=== PATIENT | female | born 1935 | race Caucasian/White ===

== ENCOUNTER 2019-08-04 21:34 | Observation (INO) ==
[2019-08-05] MEDS ORDERED: Dextrose Gel 15 GM/37.5 ML TUBE PO PRN ×2 (03:57)
[2019-08-05] MEDS ORDERED: Naloxone 0.4 MG/ML INJ IVP PRN (03:57)
[2019-08-05] MEDS ORDERED: *HR* Dextrose 50 % in Water (Syg) 50 ML SYRINGE IVP PRN (03:57)
[2019-08-05] MEDS ORDERED: D5% in Water 1,000 ML IVC PRN (03:57)
[2019-08-05] MEDS ORDERED: Aspirin Enteric Coated 81 MG Tablet PO ONE (04:03)
[2019-08-05 04:33] LABS: Basophils % 0.4 %; Eosinophils # 0.2 K/mcL (0.0-0.6); Eosinophils % 4.1 %; Hematocrit 38.5 % (35.3-44.9); Hemoglobin 11.7 g/dL (11.5-15.4); INR 1.2; Immature Granulocytes % 0.4 % (0-4); Lymphocytes # 1.5 K/mcL (0.6-4.6); Lymphocytes % 28.3 %; Mean Corpuscular HGB Conc 30.4 g/dL (31.6-35.5); Mean Corpuscular Hemoglobin 31.9 pg (28.0-33.3); Mean Corpuscular Volume 104.9 fL (83.0-100.0); Mean Platelet Volume 10.6 fL (9.4-12.4); Monocytes # 0.3 K/mcL (0.0-1.3); Monocytes % 6.3 %; Neutrophils # 3.3 K/mcL (1.6-8.9); Platelet Count 124 K/mcL (140-400); Red Blood Count 3.67 M/mcL (3.82-4.97); Red Cell Distribution Width 15.9 % (11.5-14.5); Segmented Neutrophils % 60.5 %; White Blood Count 5.4 K/mcL (4.3-11.1)
[2019-08-05 04:51] LABS: Albumin 3.6 g/dL (3.5-5.7); Albumin/Globulin Ratio 1.6 (1.1-2.2); Bilirubin,Total 0.6 mg/dL (0.3-1.0); Calcium 9.6 mg/dL (8.6-10.3); Chol/HDL Ratio 4.3 (0-4.9); Globulin 2.3 g/dL (2.4-3.5); Phosphorous 3.4 mg/dL (2.7-4.5); Total Protein 5.9 g/dL (6.4-8.9)
[2019-08-05] MEDS: Apixaban 5 MG TABLET PO SCH ×2 (08:12→21:05)
[2019-08-05] MEDS: Insulin LISPRO 300 UNITS/3 ML VIAL SQ SCH ×3 (08:12→17:30)
[2019-08-05 08:22] LABS: Estimated Average Glucose 226 mg/dl
[2019-08-05] MEDS ORDERED: Diltiazem CD (24hr) 240 MG CAPSULE PO SCH (11:00)
[2019-08-05] MEDS ORDERED: Perflutren Lipid Microsphere 1.3 ML in 0.9 % Sodium Chloride 8.7 ML IVP ONE (11:58)
[2019-08-05] MEDS: cefTRIAXone 1,000 MG in Water for inj. (sterile) 10 ML IVP SCH (12:36)
[2019-08-05] MEDS ORDERED: 0.9 % Sodium Chloride 1,000 ML IVC SCH (13:00)
[2019-08-06 06:08] LABS: Folate 7.6 ng/mL (3.0-16.0)
[2019-08-06 07:49] LABS: Basophils % 0.3 %; Eosinophils # 0.3 K/mcL (0.0-0.6); Eosinophils % 4.6 %; Hemoglobin 12.3 g/dL (11.5-15.4); Immature Granulocytes % 0.3 % (0-4); Lymphocytes # 0.9 K/mcL (0.6-4.6); Lymphocytes % 15.5 %; Mean Corpuscular HGB Conc 29.3 g/dL (31.6-35.5); Mean Corpuscular Hemoglobin 31.6 pg (28.0-33.3); Mean Platelet Volume 10.5 fL (9.4-12.4); Monocytes # 0.4 K/mcL (0.0-1.3); Monocytes % 7.1 %; Neutrophils # 4.2 K/mcL (1.6-8.9); Platelet Count 127 K/mcL (140-400); Red Blood Count 3.89 M/mcL (3.82-4.97); Red Cell Distribution Width 15.9 % (11.5-14.5); Segmented Neutrophils % 72.2 %; White Blood Count 5.8 K/mcL (4.3-11.1)
[2019-08-06 08:04] LABS: Calcium 9.5 mg/dL (8.6-10.3); Potassium 4.5 mEq/L (3.5-5.1)
[2019-08-06] MEDS: Insulin LISPRO 300 UNITS/3 ML VIAL SQ SCH ×2 (08:23→11:52)
[2019-08-06] MEDS: Apixaban 5 MG TABLET PO SCH (08:24)
[2019-08-06] MEDS ORDERED: amLODIPine 5 MG TABLET PO SCH (09:00)
[2019-08-06] MEDS ORDERED: Diltiazem CD (24hr) 180 MG CAPSULE PO SCH (09:00)
[2019-08-06 11:16] VITALS: BP 111/72
[2019-08-06] MEDS: cefTRIAXone 1,000 MG in Water for inj. (sterile) 10 ML IVP SCH (11:52)
== END 2019-08-06 13:35 | disposition left against medical advice (07) ==
LOC: 2ANU → SUATTDRO 08-05 00:38
PROVIDERS: ADMIT Family Medicine; ATTEND Internal Medicine

== ENCOUNTER 2019-08-09 10:44 | Inpatient (IN) ==
[2019-08-09] MEDS ORDERED: Furosemide 40 MG/4 ML VIAL IVP ONE (11:01)
[2019-08-09 11:20] LABS: Basophils % 0.2 %; Hematocrit 41.4 % (35.3-44.9); Hemoglobin 12.5 g/dL (11.5-15.4); Immature Granulocytes % 0.2 % (0-4); Lymphocytes # 0.3 K/mcL (0.6-4.6); Lymphocytes % 4.4 %; Mean Corpuscular HGB Conc 30.2 g/dL (31.6-35.5); Mean Corpuscular Volume 105.9 fL (83.0-100.0); Mean Platelet Volume 10.6 fL (9.4-12.4); Monocytes # 0.6 K/mcL (0.0-1.3); Monocytes % 8.9 %; Neutrophils # 5.7 K/mcL (1.6-8.9); Platelet Count 150 K/mcL (140-400); Red Blood Count 3.91 M/mcL (3.82-4.97); Red Cell Distribution Width 15.9 % (11.5-14.5); Segmented Neutrophils % 86.3 %; White Blood Count 6.5 K/mcL (4.3-11.1)
[2019-08-09 11:33] LABS: Bilirubin,Urine Small (Negative); Blood,Urine Large (Negative); Clarity,Urine Turbid (Clear); Color,Urine Dark Yellow (Yellow); Glucose,Urine (UA) >=1000 mg/dL (Normal); Ketones,Urine Negative (Negative); Leukocyte Esterase,Urine Negative (Negative); Nitrite,Urine Negative (Negative); PH,Urine 5.5 pH Units (5.0-8.0); Protein,Urine 100 mg/dL (Neg-Trace); Specific Gravity,Urine 1.023 (1.010-1.025); Urobilinogen,Urine Normal (Normal)
[2019-08-09] MEDS ORDERED: Piperacillin/Tazobactam 3.375 GM in 0.9 % Sodium Chloride Mini Bag 100 ML IVPB ONE (11:33)
[2019-08-09] MEDS ORDERED: levoFLOXacin 750 MG/150 ML 750 MG/150 ML BAG IVPB ONE (11:33)
[2019-08-09 11:35] LABS: RBC,Urine TNTC per hpf (0-3); Squamous Epithelial Cell,Urine Many per lpf (None-Few)
[2019-08-09 11:42] LABS: Potassium 4.5 mEq/L (3.5-5.1)
[2019-08-09 11:44] LABS: Troponin I 0.03 ng/mL (< 0.04)
[2019-08-09 11:53] LABS: Renal Epithelial Cells,Urine Few per hpf (None-Few)
[2019-08-09 11:55] LABS: Bacteria,Urine Few per hpf (None-Few)
[2019-08-09 11:59] LABS: Amorphous Sediment,Urine Few per hpf (Few); Uric Acid Crystals,Urine Present
[2019-08-09] MEDS ORDERED: Insulin Human Regular 10 UNIT in 0.9 % Sodium Chloride 10 ML IV ONE (13:09)
[2019-08-09] MEDS ORDERED: Ipratropium/Albuterol Neb 3 ML ONE (14:06)
[2019-08-09] MEDS: Ipratropium/Albuterol Neb 3 ML IH PRN ×3 (14:07→22:27)
[2019-08-09] MEDS ORDERED: *HR* Heparin 5,000 UNIT/ML VIAL IVP ONE (14:10)
[2019-08-09] MEDS ORDERED: *HR* Heparin 5,000 UNIT/ML VIAL IVP PRN (14:10)
[2019-08-09] MEDS ORDERED: *HR* Dextrose 50 % in Water (Syg) 50 ML SYRINGE IVP PRN (14:26)
[2019-08-09] MEDS ORDERED: D5% in Water 1,000 ML IVC PRN (14:26)
[2019-08-09] MEDS ORDERED: Dextrose Gel 15 GM/37.5 ML TUBE PO PRN ×2 (14:26)
[2019-08-09 14:28] LABS: ABG Base Excess -3 mEq/L (-2 to 3); ABG HCO3 20 mEq/L (21-27); ABG Oxygen Saturation 98 % (95-98); ABG PCO2 29 mmHg (35-45); ABG PH 7.45 pH Units (7.32-7.45); ABG PO2 96 mmHg (85-104); ABG TCO2 21 mEq/L (20-26)
[2019-08-09] MEDS ORDERED: Vancomycin (wt based) 1,000 MG VIAL IVPB SCH (15:00)
[2019-08-09] MEDS: Heparin 25,000 UNIT/250 ML D5W 25,000 UNIT/250 ML IV.SOLN IVC SCH (15:54)
[2019-08-09 16:03] LABS: Heparin anti-factor XA UFH 0.21 IU/mL (0.30-0.70); INR 1.2; Prothrombin Time 13.8 Seconds (9.4-12.1)
[2019-08-09] MEDS: Insulin LISPRO 300 UNITS/3 ML VIAL SQ SCH ×2 (20:30→23:00)
[2019-08-09] MEDS: Piperacillin/Tazobactam 3.375 GM in 0.9 % Sodium Chloride Mini Bag 100 ML IVPB SCH (22:59)
[2019-08-09 23:37] LABS: ABG Base Excess -3 mEq/L (-2 to 3); ABG HCO3 22 mEq/L (21-27); ABG Oxygen Saturation 94 % (95-98); ABG PCO2 36 mmHg (35-45); ABG PH 7.39 pH Units (7.32-7.45); ABG PO2 69 mmHg (85-104); ABG TCO2 23 mEq/L (20-26)
[2019-08-10] MEDS: Levalbuterol Neb 1.25 MG/3 ML IH SCH ×6 (03:47→23:40)
[2019-08-10 04:47] LABS: Hematocrit 37.6 % (35.3-44.9); Hemoglobin 11.5 g/dL (11.5-15.4); Mean Corpuscular HGB Conc 30.6 g/dL (31.6-35.5); Mean Corpuscular Hemoglobin 31.9 pg (28.0-33.3); Mean Corpuscular Volume 104.4 fL (83.0-100.0); Mean Platelet Volume 11.1 fL (9.4-12.4); Platelet Count 138 K/mcL (140-400); White Blood Count 5.9 K/mcL (4.3-11.1)
[2019-08-10] MEDS: Piperacillin/Tazobactam 3.375 GM in 0.9 % Sodium Chloride Mini Bag 100 ML IVPB SCH ×2 (04:57→13:02)
[2019-08-10 05:00] LABS: Calcium 9.5 mg/dL (8.6-10.3); Potassium 4.1 mEq/L (3.5-5.1)
[2019-08-10] MEDS ORDERED: Aminoglycoside Consult 1 EACH MC ONE (08:26)
[2019-08-10] MEDS: Insulin LISPRO 300 UNITS/3 ML VIAL SQ SCH ×4 (08:58→21:00)
[2019-08-10] MEDS: Acetaminophen 325 MG TABLET PO PRN ×2 (08:59→23:03)
[2019-08-10] MEDS ORDERED: amLODIPine 5 MG TABLET PO SCH (09:00)
[2019-08-10] MEDS ORDERED: Diltiazem CD (24hr) 180 MG CAPSULE PO SCH (09:00)
[2019-08-10] MEDS: Furosemide 40 MG/4 ML VIAL IVP SCH (09:19)
[2019-08-10 09:47] LABS: Adenovirus Not Detected (Not Detect); Bordetella Pertussis Not Detected (Not Detect); Chlamydophila pneumoniae Not Detected (Not Detect); Coronavirus 229E Not Detected (Not Detect); Coronavirus HKU1 Not Detected (Not Detect); Coronavirus NL63 Not Detected (Not Detect); Coronavirus OC43 Not Detected (Not Detect); Human Metapneumovirus Not Detected (Not Detect); Human Rhinovirus/Enterovirus Not Detected (Not Detect); Influenza B Not Detected (Not Detect); Mycoplasma pneumoniae Not Detected (Not Detect); Parainfluenza Virus 1 Not Detected (Not Detect); Parainfluenza Virus 2 Not Detected (Not Detect); Parainfluenza Virus 3 Not Detected (Not Detect); Parainfluenza Virus 4 Not Detected (Not Detect); Respiratory Syncytial Virus Not Detected (Not Detect)
[2019-08-10 09:50] LABS: Influenza A Subtype 2009 H1 DETECTED (Not Detect)
[2019-08-10] MEDS ORDERED: Albuterol 2.5 MG/3 ML NEBULIZER IH PRN (10:27)
[2019-08-10] MEDS: *HR* Heparin 5,000 UNIT/ML VIAL IVP PRN ×2 (11:09→21:10)
[2019-08-10] MEDS: Ipratropium/Albuterol Neb 3 ML IH SCH ×2 (11:30→15:41)
[2019-08-10] MEDS ORDERED: Albuterol 2.5 MG/3 ML NEBULIZER IH SCH (12:00)
[2019-08-10] MEDS: Metoprolol XL (24 HR) Succ 50 MG TAB.ER.24H PO SCH (13:02)
[2019-08-10] MEDS: Aspirin Enteric Coated 81 MG Tablet PO SCH (13:02)
[2019-08-10] MEDS ORDERED: *HR* Digoxin 0.5 MG/2 ML AMPUL IVP ONE (14:03)
[2019-08-10] MEDS ORDERED: methylPREDNISolone 125 MG/2 ML VIAL IVP ONE (14:13)
[2019-08-10] MEDS: Heparin 25,000 UNIT/250 ML D5W 25,000 UNIT/250 ML IV.SOLN IVC SCH (18:15)
[2019-08-10] MEDS: MethylPREDNISolone 40 MG/ML VIAL IVP SCH ×2 (18:19→23:59)
[2019-08-10] MEDS: Ipratropium Neb 0.5 MG NEBULIZER IH SCH ×3 (19:31→23:40)
[2019-08-11] MEDS: Ipratropium Neb 0.5 MG NEBULIZER IH SCH ×5 (03:31→19:43)
[2019-08-11] MEDS: Levalbuterol Neb 1.25 MG/3 ML IH SCH ×5 (03:31→19:43)
[2019-08-11 03:46] LABS: Hematocrit 37.4 % (35.3-44.9); Hemoglobin 11.2 g/dL (11.5-15.4); Mean Corpuscular HGB Conc 29.9 g/dL (31.6-35.5); Mean Corpuscular Hemoglobin 31.8 pg (28.0-33.3); Mean Corpuscular Volume 106.3 fL (83.0-100.0); Mean Platelet Volume 11.4 fL (9.4-12.4); Platelet Count 123 K/mcL (140-400); Red Blood Count 3.52 M/mcL (3.82-4.97); Red Cell Distribution Width 15.9 % (11.5-14.5)
[2019-08-11 03:48] LABS: Calcium 9.1 mg/dL (8.6-10.3); Potassium 4.9 mEq/L (3.5-5.1)
[2019-08-11] MEDS: *HR* Heparin 5,000 UNIT/ML VIAL IVP PRN (04:00)
[2019-08-11] MEDS: Insulin LISPRO 300 UNITS/3 ML VIAL SQ SCH (07:15)
[2019-08-11] MEDS ORDERED: Insulin DETEMIR 100 UNIT/ML X5UNITS SQ ONE (07:27)
[2019-08-11] MEDS ORDERED: Insulin LISPRO 300 UNITS/3 ML VIAL SQ ONE (07:27)
[2019-08-11] MEDS ORDERED: Insulin LISPRO 300 UNITS/3 ML VIAL SQ SCH ×2 (08:36→08:37)
[2019-08-11] MEDS ORDERED: levoFLOXacin 750 MG/150 ML 750 MG/150 ML BAG IVPB SCH (09:00)
[2019-08-11] MEDS: Furosemide 40 MG/4 ML VIAL IVP SCH (09:03)
[2019-08-11] MEDS: MethylPREDNISolone 40 MG/ML VIAL IVP SCH ×2 (09:03→16:34)
[2019-08-11] MEDS: Aspirin Enteric Coated 81 MG Tablet PO SCH (09:03)
[2019-08-11] MEDS: Piperacillin/Tazobactam 3.375 GM in 0.9 % Sodium Chloride Mini Bag 100 ML IVPB SCH ×2 (09:04)
[2019-08-11] MEDS: Metoprolol XL (24 HR) Succ 50 MG TAB.ER.24H PO SCH (09:04)
[2019-08-11] MEDS ORDERED: Acetaminophen 325 MG TABLET PO PRN (09:44)
[2019-08-11] MEDS ORDERED: *HR* Dextrose 50 % in Water (Syg) 50 ML SYRINGE IVP PRN (09:55)
[2019-08-11] MEDS: Insulin Human Regular 100 UNIT in 0.9 % Sodium Chloride 100 ML IVC SCH ×2 (11:04→16:33)
[2019-08-11] MEDS: Sennosides/Docusate Sodium TABLET PO SCH ×2 (11:05→22:25)
[2019-08-11] MEDS: *HR* OxyCODONE Immed Rel 5 MG TABLET PO PRN (11:05)
[2019-08-11] MEDS: Heparin 25,000 UNIT/250 ML D5W 25,000 UNIT/250 ML IV.SOLN IVC SCH (14:31)
[2019-08-11] MEDS: Silvasorb 44.4 ML TUBE TP SCH (16:34)
[2019-08-11] MEDS ORDERED: Insulin DETEMIR 100 UNIT/ML X5UNITS SQ SCH (21:00)
[2019-08-11] MEDS: Apixaban 5 MG TABLET PO SCH (22:25)
[2019-08-12] MEDS: Levalbuterol Neb 1.25 MG/3 ML IH SCH ×7 (00:30→23:19)
[2019-08-12] MEDS: Ipratropium Neb 0.5 MG NEBULIZER IH SCH ×2 (00:30→04:08)
[2019-08-12] MEDS: MethylPREDNISolone 40 MG/ML VIAL IVP SCH (00:34)
[2019-08-12] MEDS ORDERED: Metoclopramide 10 MG/2 ML VIAL IVP ONE (03:21)
[2019-08-12 07:40] LABS: Hematocrit 29.8 % (35.3-44.9); Mean Corpuscular HGB Conc 30.5 g/dL (31.6-35.5); Mean Corpuscular Hemoglobin 31.7 pg (28.0-33.3); Mean Corpuscular Volume 103.8 fL (83.0-100.0); Platelet Count 184 K/mcL (140-400); Red Blood Count 2.87 M/mcL (3.82-4.97); Red Cell Distribution Width 15.7 % (11.5-14.5)
[2019-08-12 07:41] LABS: Hemoglobin 9.1 g/dL (11.5-15.4); White Blood Count 15.3 K/mcL (4.3-11.1)
[2019-08-12 07:49] LABS: Calcium 9.3 mg/dL (8.6-10.3); Potassium 4.3 mEq/L (3.5-5.1)
[2019-08-12] MEDS: Apixaban 5 MG TABLET PO SCH (08:01)
[2019-08-12] MEDS: Metoprolol XL (24 HR) Succ 50 MG TAB.ER.24H PO SCH (08:01)
[2019-08-12] MEDS: Sennosides/Docusate Sodium TABLET PO SCH ×2 (08:01→20:13)
[2019-08-12] MEDS ORDERED: *HR* LORazepam 2 MG/ML VIAL IVP ONE (10:20)
[2019-08-12] MEDS: Silvasorb 44.4 ML TUBE TP SCH (10:45)
[2019-08-12] MEDS ORDERED: Milk and Molasses Enema 200 ML RC ONE (12:03)
[2019-08-12] MEDS: predniSONE 20 MG TABLET PO SCH (14:26)
[2019-08-12 14:53] LABS: Basophils % 0.1 %; Hematocrit 29.6 % (35.3-44.9); Hemoglobin 9.1 g/dL (11.5-15.4); Immature Granulocytes % 0.5 % (0-4); Lymphocytes # 0.8 K/mcL (0.6-4.6); Lymphocytes % 5.8 %; Mean Corpuscular HGB Conc 30.7 g/dL (31.6-35.5); Mean Corpuscular Hemoglobin 31.2 pg (28.0-33.3); Mean Corpuscular Volume 101.4 fL (83.0-100.0); Monocytes # 0.7 K/mcL (0.0-1.3); Monocytes % 4.9 %; Neutrophils # 11.7 K/mcL (1.6-8.9); Nucleated Red Blood Cells 0.2 /100 WBC (0); Platelet Count 182 K/mcL (140-400); Red Blood Count 2.92 M/mcL (3.82-4.97); Red Cell Distribution Width 15.8 % (11.5-14.5); Segmented Neutrophils % 88.7 %; White Blood Count 13.2 K/mcL (4.3-11.1)
[2019-08-12 15:11] LABS: Calcium 9.1 mg/dL (8.6-10.3); Potassium 4.2 mEq/L (3.5-5.1)
[2019-08-12 17:32] LABS: Hematocrit 28.9 % (35.3-44.9)
[2019-08-12] MEDS ORDERED: MethylPREDNISolone 40 MG/ML VIAL IVP SCH (18:00)
[2019-08-12 23:50] LABS: Hematocrit 27.1 % (35.3-44.9); Hemoglobin 8.3 g/dL (11.5-15.4)
[2019-08-13 02:51] LABS: Hematocrit 27.4 % (35.3-44.9); Hemoglobin 8.1 g/dL (11.5-15.4); Mean Corpuscular HGB Conc 29.6 g/dL (31.6-35.5); Mean Corpuscular Hemoglobin 31.2 pg (28.0-33.3); Mean Corpuscular Volume 105.4 fL (83.0-100.0); Mean Platelet Volume 10.8 fL (9.4-12.4); Platelet Count 156 K/mcL (140-400); Red Cell Distribution Width 15.9 % (11.5-14.5)
[2019-08-13 03:06] LABS: Calcium 8.8 mg/dL (8.6-10.3); Potassium 4.1 mEq/L (3.5-5.1)
[2019-08-13] MEDS: Levalbuterol Neb 1.25 MG/3 ML IH SCH ×6 (03:31→23:20)
[2019-08-13 06:54] LABS: Hematocrit 27.9 % (35.3-44.9); Hemoglobin 8.4 g/dL (11.5-15.4)
[2019-08-13] MEDS: Sennosides/Docusate Sodium TABLET PO SCH ×2 (08:37→21:50)
[2019-08-13] MEDS: Insulin LISPRO 300 UNITS/3 ML VIAL SQ SCH ×4 (08:37→21:49)
[2019-08-13] MEDS: predniSONE 20 MG TABLET PO SCH (08:37)
[2019-08-13] MEDS: Metoprolol XL (24 HR) Succ 50 MG TAB.ER.24H PO SCH (08:37)
[2019-08-13] MEDS ORDERED: levoFLOXacin 750 MG TABLET PO SCH ×2 (09:00→15:00)
[2019-08-13 15:00] LABS: Hematocrit 27.4 % (35.3-44.9); Hemoglobin 8.5 g/dL (11.5-15.4)
[2019-08-13] MEDS: Silvasorb 44.4 ML TUBE TP SCH (15:13)
[2019-08-14] MEDS: Levalbuterol Neb 1.25 MG/3 ML IH SCH ×6 (03:36→23:31)
[2019-08-14 06:19] LABS: Eosinophils % 0.1 %; Hematocrit 27.8 % (35.3-44.9); Hemoglobin 8.2 g/dL (11.5-15.4); Immature Granulocytes % 0.8 % (0-4); Mean Corpuscular HGB Conc 29.5 g/dL (31.6-35.5); Mean Corpuscular Hemoglobin 30.8 pg (28.0-33.3); Mean Corpuscular Volume 104.5 fL (83.0-100.0); Mean Platelet Volume 10.5 fL (9.4-12.4); Monocytes # 0.5 K/mcL (0.0-1.3); Monocytes % 6.4 %; Neutrophils # 6.7 K/mcL (1.6-8.9); Nucleated Red Blood Cells 0.2 /100 WBC (0); Platelet Count 171 K/mcL (140-400); Red Blood Count 2.66 M/mcL (3.82-4.97); Red Cell Distribution Width 15.9 % (11.5-14.5); Segmented Neutrophils % 80.7 %; White Blood Count 8.3 K/mcL (4.3-11.1)
[2019-08-14 06:39] LABS: Potassium 4.5 mEq/L (3.5-5.1)
[2019-08-14] MEDS: Sennosides/Docusate Sodium TABLET PO SCH ×2 (10:04→21:11)
[2019-08-14] MEDS: Metoprolol XL (24 HR) Succ 50 MG TAB.ER.24H PO SCH (10:04)
[2019-08-14] MEDS: Silvasorb 44.4 ML TUBE TP SCH ×2 (10:05→22:12)
[2019-08-14] MEDS: Insulin LISPRO 300 UNITS/3 ML VIAL SQ SCH ×4 (10:05→22:14)
[2019-08-14] MEDS: predniSONE 20 MG TABLET PO SCH (10:05)
[2019-08-14] MEDS: *HR* OxyCODONE Immed Rel 5 MG TABLET PO PRN ×2 (10:15→21:38)
[2019-08-14] MEDS ORDERED: *HR* Promethazine 25 MG/ML VIAL IVP PRN (15:18)
[2019-08-14] MEDS ORDERED: Ondansetron ODT 4 MG TAB.RAPDIS SL PRN (16:34)
[2019-08-14] MEDS ORDERED: Haloperidol Lactate 5 MG/ML VIAL IVP ONE (22:34)
[2019-08-15] MEDS: Levalbuterol Neb 1.25 MG/3 ML IH SCH ×6 (04:11→23:40)
[2019-08-15 04:49] LABS: Hemoglobin 8.8 g/dL (11.5-15.4); Mean Corpuscular HGB Conc 30.3 g/dL (31.6-35.5); Mean Corpuscular Hemoglobin 31.9 pg (28.0-33.3); Mean Corpuscular Volume 105.1 fL (83.0-100.0); Mean Platelet Volume 10.8 fL (9.4-12.4); Platelet Count 188 K/mcL (140-400); Red Blood Count 2.76 M/mcL (3.82-4.97); Red Cell Distribution Width 16.1 % (11.5-14.5)
[2019-08-15 05:01] LABS: Calcium 9.4 mg/dL (8.6-10.3); Potassium 5.7 mEq/L (3.5-5.1)
[2019-08-15] MEDS: Insulin LISPRO 300 UNITS/3 ML VIAL SQ SCH ×4 (08:05→22:24)
[2019-08-15] MEDS: levoFLOXacin 750 MG TABLET PO SCH (10:18)
[2019-08-15] MEDS: predniSONE 20 MG TABLET PO SCH (10:19)
[2019-08-15] MEDS: Sennosides/Docusate Sodium TABLET PO SCH ×2 (10:20→21:35)
[2019-08-15] MEDS: Metoprolol XL (24 HR) Succ 50 MG TAB.ER.24H PO SCH (10:20)
[2019-08-15] MEDS: Silvasorb 44.4 ML TUBE TP SCH (10:20)
[2019-08-15] MEDS ORDERED: Metoprolol XL (24 HR) Succ 25 MG TAB.ER.24H PO ONE (10:51)
[2019-08-15 11:09] LABS: Calcium 9.3 mg/dL (8.6-10.3); Potassium 4.7 mEq/L (3.5-5.1)
[2019-08-15] MEDS ORDERED: Furosemide 20 MG TABLET PO SCH (14:00)
[2019-08-16] MEDS: Levalbuterol Neb 1.25 MG/3 ML IH SCH ×6 (03:46→23:27)
[2019-08-16 06:09] LABS: Hematocrit 32.1 % (35.3-44.9); Hemoglobin 9.3 g/dL (11.5-15.4); Mean Corpuscular Hemoglobin 31.8 pg (28.0-33.3); Mean Corpuscular Volume 109.9 fL (83.0-100.0); Mean Platelet Volume 10.4 fL (9.4-12.4); Platelet Count 147 K/mcL (140-400); Red Blood Count 2.92 M/mcL (3.82-4.97); White Blood Count 7.1 K/mcL (4.3-11.1)
[2019-08-16 06:50] LABS: Calcium 9.3 mg/dL (8.6-10.3)
[2019-08-16] MEDS ORDERED: Metoprolol XL (24 HR) Succ 25 MG TAB.ER.24H PO SCH ×2 (09:00→09:30)
[2019-08-16] MEDS: predniSONE 20 MG TABLET PO SCH (09:02)
[2019-08-16] MEDS: Sennosides/Docusate Sodium TABLET PO SCH ×2 (09:02→21:26)
[2019-08-16] MEDS: Insulin LISPRO 300 UNITS/3 ML VIAL SQ SCH ×4 (09:03→21:25)
[2019-08-16] MEDS ORDERED: Metoprolol XL (24 HR) Succ 25 MG TAB.ER.24H PO ONE (09:35)
[2019-08-16] MEDS ORDERED: *HR* Digoxin 0.5 MG/2 ML AMPUL IVP SCH (09:49)
[2019-08-16] MEDS: *HR* Digoxin 0.5 MG/2 ML AMPUL IVP SCH ×2 (11:28→21:26)
[2019-08-16] MEDS: Aspirin Enteric Coated 81 MG Tablet PO SCH (13:18)
[2019-08-16] MEDS ORDERED: Insulin DETEMIR 100 UNIT/ML X5UNITS SQ SCH (21:00)
[2019-08-16] MEDS: Silvasorb 44.4 ML TUBE TP SCH (21:03)
[2019-08-17 03:02] LABS: Hematocrit 27.2 % (35.3-44.9); Mean Corpuscular HGB Conc 29.4 g/dL (31.6-35.5); Mean Corpuscular Hemoglobin 31.5 pg (28.0-33.3); Mean Corpuscular Volume 107.1 fL (83.0-100.0); Mean Platelet Volume 10.2 fL (9.4-12.4); Platelet Count 204 K/mcL (140-400); Red Blood Count 2.54 M/mcL (3.82-4.97); Red Cell Distribution Width 16.8 % (11.5-14.5); White Blood Count 9.7 K/mcL (4.3-11.1)
[2019-08-17 03:24] LABS: Calcium 9.4 mg/dL (8.6-10.3); Potassium 4.5 mEq/L (3.5-5.1)
[2019-08-17] MEDS: Levalbuterol Neb 1.25 MG/3 ML IH SCH ×3 (03:24→11:18)
[2019-08-17] MEDS ORDERED: Metoprolol XL (24 HR) Succ 25 MG TAB.ER.24H PO SCH (09:00)
[2019-08-17] MEDS: Silvasorb 44.4 ML TUBE TP SCH (09:08)
[2019-08-17] MEDS: levoFLOXacin 750 MG TABLET PO SCH (09:14)
[2019-08-17] MEDS: Sennosides/Docusate Sodium TABLET PO SCH (09:14)
[2019-08-17] MEDS: Aspirin Enteric Coated 81 MG Tablet PO SCH (09:14)
[2019-08-17] MEDS: predniSONE 20 MG TABLET PO SCH (09:15)
[2019-08-17] MEDS: Insulin LISPRO 300 UNITS/3 ML VIAL SQ SCH ×2 (09:19→11:40)
[2019-08-17] MEDS ORDERED: Furosemide 20 MG/2 ML VIAL IVP ONE (11:23)
[2019-08-17 11:24] VITALS: BP 156/73
[2019-08-17] MEDS ORDERED: Insulin LISPRO 300 UNITS/3 ML VIAL SQ SCH ×2 (13:42→21:00)
[2019-08-17] MEDS ORDERED: Insulin DETEMIR 100 UNIT/ML X5UNITS SQ SCH (21:00)
[2019-08-18] MEDS ORDERED: Furosemide 20 MG TABLET PO SCH (09:00)
[2019-08-18] MEDS ORDERED: predniSONE 20 MG TABLET PO SCH (09:00)
[2019-08-18] MEDS ORDERED: *HR* Digoxin 0.125 MG TABLET PO SCH (09:00)
== END 2019-08-17 16:03 | DRG 291 ==
LOC: SUATTDRO → 2ANU 10:44 → EMEROOARM 10:44 → SUATTDRO 18:36 → 2ANU 20:10 → SUATTDRO 08-10 17:53
PROVIDERS: ADMIT Family Medicine; ATTEND Internal Medicine

== ENCOUNTER 2019-10-29 03:27 | Observation (INO) ==
[2019-10-29] MEDS ORDERED: Ondansetron 4 MG/2 ML VIAL IVP PRN (07:32)
[2019-10-29] MEDS ORDERED: Naloxone 0.4 MG/ML INJ IVP PRN ×2 (07:32→07:47)
[2019-10-29] MEDS ORDERED: *HR* Dextrose 50 % in Water (Syg) 50 ML SYRINGE IVP PRN (07:49)
[2019-10-29] MEDS ORDERED: D5% in Water 1,000 ML IVC PRN (07:49)
[2019-10-29] MEDS ORDERED: Dextrose Gel 15 GM/37.5 ML TUBE PO PRN ×2 (07:49)
[2019-10-29] MEDS: Ertapenem 1,000 MG in 0.9 % Sodium Chloride Mini Bag 100 ML IVPB SCH (10:58)
[2019-10-29] MEDS: Azithromycin 500 MG in 0.9 % Sodium Chloride 250 ML IVPB SCH (10:58)
[2019-10-29] MEDS: Insulin LISPRO 300 UNITS/3 ML VIAL SQ SCH ×2 (11:19→16:41)
[2019-10-29 11:51] LABS: ABG Base Excess 1 mEq/L (-2 to 3); ABG HCO3 28 mEq/L (21-27); ABG Oxygen Saturation 94 % (95-98); ABG PCO2 51 mmHg (35-45); ABG PH 7.35 pH Units (7.32-7.45); ABG PO2 77 mmHg (85-104); ABG TCO2 30 mEq/L (20-26)
[2019-10-29] MEDS: Aspirin Enteric Coated 81 MG Tablet PO SCH (12:08)
[2019-10-29] MEDS: Metoprolol 100 MG TABLET PO SCH (12:08)
[2019-10-29] MEDS: *HR* Heparin 5,000 UNIT/ML VIAL SQ SCH (17:27)
[2019-10-29] MEDS ORDERED: Furosemide 40 MG/4 ML VIAL IVP SCH (21:00)
[2019-10-29] MEDS ORDERED: Insulin LISPRO 300 UNITS/3 ML VIAL SQ SCH (21:00)
[2019-10-30 03:03] LABS: Basophils % 0.3 %; Red Cell Distribution Width 18.8 % (11.5-14.5)
[2019-10-30 03:05] LABS: Eosinophils # 0.1 K/mcL (0.0-0.6); Eosinophils % 1.1 %; Hematocrit 42.2 % (35.3-44.9); Immature Granulocytes % 0.7 % (0-4); Lymphocytes # 1.6 K/mcL (0.6-4.6); Lymphocytes % 20.4 %; Mean Corpuscular HGB Conc 28.4 g/dL (31.6-35.5); Mean Corpuscular Hemoglobin 29.3 pg (28.0-33.3); Mean Corpuscular Volume 103.2 fL (83.0-100.0); Mean Platelet Volume 10.4 fL (9.4-12.4); Monocytes # 0.7 K/mcL (0.0-1.3); Monocytes % 9.8 %; Neutrophils # 5.2 K/mcL (1.6-8.9); Nucleated Red Blood Cells 0.3 /100 WBC (0); Platelet Count 156 K/mcL (140-400); Red Blood Count 4.09 M/mcL (3.82-4.97); Segmented Neutrophils % 67.7 %; White Blood Count 7.6 K/mcL (4.3-11.1)
[2019-10-30 03:23] LABS: BUN/Creatinine Ratio 25 (6-26); Blood Urea Nitrogen 33 mg/dL (8-23); Calcium 9.4 mg/dL (8.6-10.3); Carbon Dioxide 28 mEq/L (23-29); Chloride 108 mEq/L (98-107); Chol/HDL Ratio 6.9 (0-4.9); Glucose 122 mg/dL (70-105); Magnesium 1.7 mg/dL (1.6-2.6); Osmolality,Calculated 301 (280-300); Phosphorous 3.9 mg/dL (2.7-4.5); Potassium 3.9 mEq/L (3.5-5.1); Sodium 141 mEq/L (136-145); eGFR For African Americans 46 (> 60); eGFR For Non-African Americans 38 (> 60)
[2019-10-30 04:03] LABS: Platelet Estimate Normal (Normal); Polychromasia 1+ (Not Present)
[2019-10-30] MEDS ORDERED: *HR* Metoprolol 5 MG/5 ML VIAL IVP ONE (04:51)
[2019-10-30] MEDS: *HR* Heparin 5,000 UNIT/ML VIAL SQ SCH ×2 (04:56→16:18)
[2019-10-30] MEDS ORDERED: Perflutren Lipid Microsphere 1.3 ML in 0.9 % Sodium Chloride 8.7 ML IVP ONE (07:27)
[2019-10-30] MEDS: Insulin LISPRO 300 UNITS/3 ML VIAL SQ SCH ×3 (08:02→16:18)
[2019-10-30] MEDS: Metoprolol 100 MG TABLET PO SCH (08:27)
[2019-10-30] MEDS: Ertapenem 1,000 MG in 0.9 % Sodium Chloride Mini Bag 100 ML IVPB SCH (08:27)
[2019-10-30] MEDS: Aspirin Enteric Coated 81 MG Tablet PO SCH (08:27)
[2019-10-30] MEDS ORDERED: *HR* Metoprolol 5 MG/5 ML VIAL IVP PRN (08:56)
[2019-10-30] MEDS ORDERED: Furosemide 40 MG/4 ML VIAL IVP SCH (09:00)
[2019-10-30] MEDS: Azithromycin 500 MG in 0.9 % Sodium Chloride 250 ML IVPB SCH (09:51)
[2019-10-30 10:18] LABS: Digoxin < 0.3 ng/mL (0.8-2.0)
[2019-10-30 15:07] VITALS: BP 115/72
[2019-10-30] MEDS ORDERED: Fosfomycin Tromethamine 3 GM Packet PO ONE (15:45)
[2019-10-31] MEDS ORDERED: Metoprolol XL (24 HR) Succ 50 MG TAB.ER.24H PO SCH (09:00)
== END 2019-10-30 17:56 | disposition hospice, home (50) ==
LOC: 2NENU
PROVIDERS: ADMIT Internal Medicine; ATTEND Internal Medicine